=== PATIENT | male | born 1960 | race Caucasian/White ===

== ENCOUNTER 2025-03-30 14:12 | Emergency (ER) | payer MEDICARE, OTHER ==
[2025-03-30] MEDS ORDERED: Sodium Chloride 0.9% 2.5 ML Syringe FLUSH PRN (14:30)
[2025-03-30] MEDS ORDERED: Sodium Chloride 0.9% 10 ML Syringe FLUSH PRN (14:30)
[2025-03-30 14:41] LABS: BASOPHILS ABSOLUTE AUTO 0.07 K/uL (0.00-0.20); BASOPHILS PERCENT AUTO 0.9 % (0.0-1.0); EOSINOPHILS ABSOLUTE AUTO 0.14 K/uL (0.00-0.45); EOSINOPHILS PERCENT AUTO 1.7 % (0.0-6.0); IMMATURE GRAN ABSOLUTE AUTO 0.03 K/uL (0.00-0.05); IMMATURE GRAN PERCENT AUTO 0.4 % (0.0-0.4); LYMPHOCYTES ABSOLUTE AUTO 1.51 K/uL (1.00-4.80); LYMPHOCYTES PERCENT AUTO 18.6 % (24.0-44.0); MEAN PLATELET VOLUME 9.1 fL (9.4-12.4); MONOCYTES ABSOLUTE AUTO 0.65 K/uL (0.00-0.80); MONOCYTES PERCENT AUTO 8.0 % (0.0-8.0); NEUTROPHILS ABSOLUTE AUTO 5.72 K/uL (1.80-7.70); NEUTROPHILS PERCENT AUTO 70.4 % (41.0-71.0); NRBC ABSOLUTE 0.00 K/uL (0.00-0.02); NRBC PERCENT 0.0 /100WBC (0.0-0.2); PLATELET COUNT,PLT 233 K/uL (150-400); RED BLOOD CELL COUNT 5.40 M/uL (4.52-5.90); WHITE BLOOD CELL COUNT,WBC 8.12 K/uL (3.9-11.3)
[2025-03-30 14:49] LABS: INR 1.05 (0.86-1.11); PTT,PARTIAL THROMBOPLSTIN TIME 27.6 SEC (23.9-30.7)
[2025-03-30] MEDS: Iopamidol 755 MG/ML 500 ML Multipack Bottle IVPUSH STA (14:52)
[2025-03-30 15:13] LABS: A/G RATIO 1.0 (0.9-1.6); ALANINE AMINOTRANSFERASE,ALT 41.0 IU/L (14-63); ASPARTATE AMNIOTRANSFERASE,AST 45.0 IU/L (15-37); BILIRUBIN TOTAL 0.8 mg/dL (0.2-1.0); BLOOD UREA NITROGEN,BUN 18.0 mg/dL (7.0-18.0); CARBON DIOXIDE,CO2 25.0 mmol/L (21.0-32.0); CHLORIDE,CL 101.0 mmol/L (98-107); CREATININE 0.9 mg/dL (0.8-1.3); EST CRCL DRUG DOSING (CG) 84.49 mL/min; GLUCOSE RANDOM 118.0 mg/dL (74-106); POTASSIUM,K 3.8 mmol/L (3.5-5.1); PROTEIN TOTAL,TP 8.0 g/dL (6.4-8.2); SODIUM,NA 137.0 mmol/L (136-148)
[2025-03-30 15:36] LABS: CREATINE KINASE,CK 1279.0 U/L (26-308); ESTIMATED GFR 95.0 mL/min (>60)
[2025-03-30 15:51] LABS: LACTIC ACID 1.0 mmol/L (0.4-2.0)
[2025-03-30] MEDS: ceFAZolin 2 GM in Water For Injection, Sterile 20 ML IVPUSH ONE (17:08)
[2025-03-30] MEDS: Bacitracin Oint 1 GM U/D Packet TOP ONE (18:52)
== END 2025-03-30 19:35 | disposition left against medical advice (07) ==
LOC: MW.ED 14:12
DX: T79.6XXA Traumatic ischemia of muscle, initial encounter (principal); S91.102A Unspecified open wound of left great toe without damage to nail, initial encounter; T33.832A Superficial frostbite of left toe(s), initial encounter; Z79.899 Other long term (current) drug therapy; V89.2XXA Person injured in unspecified motor-vehicle accident, traffic, initial encounter
CPT/HCPCS: 36415; 70450; 71260; 72125; 72128; 72131; 74177; 80053; 82550; 83605; 83735; 84484; 85025; 85610; 85730; 86850; 86900; 86901; 93005; 96361; 96374; 99284; A4216; J0690; J7030; Q9967

== ENCOUNTER 2025-03-31 19:47 | Emergency (ER) | payer MEDICARE, OTHER | END 2025-03-31 20:57 | disposition home or self-care (01) | LOC: MW.ED 19:47 | DX: T33.822D Superficial frostbite of left foot, subsequent encounter (principal); X31.XXXD Exposure to excessive natural cold, subsequent encounter; Z79.899 Other long term (current) drug therapy | CPT/HCPCS: 99283 ==